=== PATIENT | male | born 1950 | race Caucasian/White ===

== ENCOUNTER 2018-08-04 15:43 | Inpatient (IN) | payer MEDICARE, BC ==
[2018-08-04] MEDS ORDERED: SODIUM CHLORIDE 0.9% 500 ML 500 ML IV ONE (15:58)
--- NOTE | 2018-08-04 16:02 | ED ---
General Adult HPI - General Chief complaint: Fall Stated complaint: Fall off ladder Time Seen by Provider: 08/04/18 15:54 Source: patient, RN notes reviewed, old records reviewed Mode of arrival: wheelchair Limitations: no limitations - History of Present Illness Initial comments: 67-year-old male presents status post fall with head injury. Patient states he was on a ladder approximate 6 feet in the air, patient states does not remember tripping or losing his balance, does not remember passing out prior to falling. He does not remember tripping. He has no chronic medical history. Not on blood thinners. He is complaining of occipital headache and right shoulder pain as well as right posterior chest wall pain. His tetanus is up-to-date, received tetanus vaccination approximate 3 years ago. He does have laceration with minimal hemorrhage on the back of his head. Patient denies any preceding chest pain or palpitations. Denies any nausea or vomiting. He states he did have one shot of alcohol at lunch. - Related Data Home Medications Medication Instructions Recorded Confirmed Magnesium Oxide [Mag-Ox] 500 mg PO DAILY 08/04/18 08/04/18 Allergies Allergy/AdvReac Type Severity Reaction Status Date / Time Penicillins Allergy Rash/Hives Verified 08/04/18 16:23 vancomycin Allergy Rash/Hives Verified 08/04/18 16:23 Review of Systems ROS Statement: Those systems with pertinent positive or pertinent negative responses have been documented in the HPI. ROS Other: All systems not noted in ROS Statement are negative. Past Medical History Past Medical History: No Reported History History of Any Multi-Drug Resistant Organisms: None Reported Past Surgical History: Joint Replacement Past Psychological History: No Psychological Hx Reported Smoking Status: Never smoker Past Alcohol Use History: Occasional Past Drug Use History: None Reported General Exam Limitations: no limitations General appearance: alert, in no apparent distress Head exam: Present: normocephalic, other (Occipital laceration, no active bleeding) Eye exam: Present: normal appearance, PERRL, EOMI ENT exam: Present: normal exam Neck exam: Present: normal inspection, full ROM. Absent: tenderness, meningismus Respiratory exam: Present: normal lung sounds bilaterally, chest wall tenderness (Posterior chest wall pain right side.). Absent: respiratory distress Cardiovascular Exam: Present: regular rate, normal rhythm GI/Abdominal exam: Present: soft. Absent: distended, tenderness Extremities exam: Present: normal capillary refill, other (Range of motion limited at the shoulder, 2+ radial pulse on the right, there is deformity of right shoulder consistent with fracture or dislocation) Course Vital Signs 08/04/18 08/04/18 15:46 18:27 Temperature 98 F Pulse Rate 63 81 Respiratory 18 18 Rate Blood Pressure 180/98 154/88 O2 Sat by Pulse 100 97 Oximetry EKG Findings - EKG Comments: EKG Findings:: EKG: Normal sinus rhythm, rate of 62, TX interval 144, QRS duration 94, QTC 43, no ST segment changes Procedures - Laceration Laceration #1 Consent Obtained: verbal consent Time Out Performed: Yes Indication: laceration Site: scalp Description: linear Depth: simple, single layer Pre-repair: wound explored, irrigated extensively, deep structures intact Size of Sutures: other ([place]) Number of Sutures: 6 Technique: simple, interrupted Patient Tolerated Procedure: well Medical Decision Making - Medical Decision Making 67 male presents status post fall from ladder. Patient's history is concerning for syncopal episode prior to the fall. Trauma workup in the emergency department reveals a scalp laceration on the occipital scalp, and deformity of the left shoulder with x-ray evidence of scapular fracture. Additional trauma workup is negative, CT head is negative for intracranial hemorrhage, CT cervical spine negative for fracture or subluxation. Chest x-ray negative for pneumothorax, no rib fractures. X-ray of the pelvis is negative for acute bony abnormality. CT of the chest and pelvis is significant only for, and a right scapular fracture. Patient's occipital scalp laceration is cleansed and repaired with 6 swapna. Case is discussed with orthopedics regarding the scapular fracture, patient will be placed in a sling with orthopedics on consult. Case is also discussed with trauma surgery given the fall, given that this was related to syncope, patient will be admitted to internal medicine with both orthopedics and trauma surgery on consult. Patient will be kept on telemetry, echo will be obtained, serial cardiac enzymes will be obtained. Case discussed with Dr. Mix will accept admission for syncopal evaluation. Echo will be obtained, patient will be kept on telemetry, serial cardiac enzymes obtained. - Lab Data Result diagrams: 08/04/18 16:14 08/04/18 16:14 Lab Results 10/22/18 10/22/18 10/22/18 Range/Units 16:14 16:14 16:14 WBC 9.7 (3.8-10.6) k/uL RBC 4.93 (4.30-5.90) m/uL Hgb 15.3 (13.0-17.5) gm/dL Hct 46.8 (39.0-53.0) % MCV 95.0 (80.0-100.0) fL MCH 31.0 (25.0-35.0) pg MCHC 32.6 (31.0-37.0) g/dL RDW 12.8 (11.5-15.5) % Plt Count 260 (150-450) k/uL Neutrophils % 76 % Lymphocytes % 15 % Monocytes % 4 % Eosinophils % 3 % Basophils % 0 % Neutrophils # 7.4 (1.3-7.7) k/uL Lymphocytes # 1.5 (1.0-4.8) k/uL Monocytes # 0.4 (0-1.0) k/uL Eosinophils # 0.3 (0-0.7) k/uL Basophils # 0.0 (0-0.2) k/uL PT (9.0-12.0) sec INR (<1.2) APTT (22.0-30.0) sec Sodium 137 (137-145) mmol/L Potassium 4.3 (3.5-5.1) mmol/L Chloride 104 (98-107) mmol/L Carbon Dioxide 28 (22-30) mmol/L Anion Gap 5 mmol/L BUN 14 (9-20) mg/dL Creatinine 0.79 (0.66-1.25) mg/dL Est GFR (CKD-EPI)AfAm >90 (>60 ml/min/1.73 sqM) Est GFR (CKD-EPI)NonAf >90 (>60 ml/min/1.73 sqM) Glucose 167 H (74-99) mg/dL Calcium 9.0 (8.4-10.2) mg/dL Magnesium 2.1 (1.6-2.3) mg/dL Total Bilirubin 0.7 (0.2-1.3) mg/dL AST 45 (17-59) U/L ALT 41 (21-72) U/L Alkaline Phosphatase 63 (38-126) U/L Total Creatine Kinase 387 H (55-170) U/L CK-MB (CK-2) 7.1 H (0.0-2.4) ng/mL CK-MB (CK-2) Rel Index 1.8 Troponin I <0.012 (0.000-0.034) ng/mL Total Protein 6.9 (6.3-8.2) g/dL Albumin 4.0 (3.5-5.0) g/dL Serum Alcohol <10 mg/dL 08/04/18 Range/Units 16:14 WBC (3.8-10.6) k/uL RBC (4.30-5.90) m/uL Hgb (13.0-17.5) gm/dL Hct (39.0-53.0) % MCV (80.0-100.0) fL MCH (25.0-35.0) pg MCHC (31.0-37.0) g/dL RDW (11.5-15.5) % Plt Count (150-450) k/uL Neutrophils % % Lymphocytes % % Monocytes % % Eosinophils % % Basophils % % Neutrophils # (1.3-7.7) k/uL Lymphocytes # (1.0-4.8) k/uL Monocytes # (0-1.0) k/uL Eosinophils # (0-0.7) k/uL Basophils # (0-0.2) k/uL PT 10.4 (9.0-12.0) sec INR 1.1 (<1.2) APTT 21.3 L (22.0-30.0) sec Sodium (137-145) mmol/L Potassium (3.5-5.1) mmol/L Chloride (98-107) mmol/L Carbon Dioxide (22-30) mmol/L Anion Gap mmol/L BUN (9-20) mg/dL Creatinine (0.66-1.25) mg/dL Est GFR (CKD-EPI)AfAm (>60 ml/min/1.73 sqM) Est GFR (CKD-EPI)NonAf (>60 ml/min/1.73 sqM) Glucose (74-99) mg/dL Calcium (8.4-10.2) mg/dL Magnesium (1.6-2.3) mg/dL Total Bilirubin (0.2-1.3) mg/dL AST (17-59) U/L ALT (21-72) U/L Alkaline Phosphatase (38-126) U/L Total Creatine Kinase (55-170) U/L CK-MB (CK-2) (0.0-2.4) ng/mL CK-MB (CK-2) Rel Index Troponin I (0.000-0.034) ng/mL Total Protein (6.3-8.2) g/dL Albumin (3.5-5.0) g/dL Serum Alcohol mg/dL Disposition Clinical Impression: Fall, Syncope, Right scapula fracture, Scalp laceration Disposition: ADMITTED IP TO THIS [facility] Referrals: Nonstaff,Physician [Primary Care Provider] - 1-2 days Decision to Admit Reason: Admit from EC Decision Date: 08/04/18 Decision Time: 19:48
[2018-08-04 16:34] LABS: Basophils % (A) 0 %; Eosinophils # (A) 0.3 k/uL (0-0.7); Eosinophils % (A) 3 %; HCT 46.8 % (39.0-53.0); HGB 15.3 gm/dL (13.0-17.5); Lymphocytes # (A) 1.5 k/uL (1.0-4.8); Lymphocytes % (A) 15 %; MCHC 32.6 g/dL (31.0-37.0); Mean Platelet Volume 6.7; Monocytes # (A) 0.4 k/uL (0-1.0); Monocytes % (A) 4 %; Neutrophils # (A) 7.4 k/uL (1.3-7.7); Neutrophils % (A) 76 %; Platelet Count 260 k/uL (150-450); RBC 4.93 m/uL (4.30-5.90); RDW 12.8 % (11.5-15.5); WBC 9.7 k/uL (3.8-10.6)
[2018-08-04 16:42] LABS: ALT 41 U/L (21-72); AST 45 U/L (17-59); Alcohol <10 mg/dL; Alkaline Phosphatase 63 U/L (38-126); Anion Gap 5 mmol/L; Blood Urea Nitrogen 14 mg/dL (9-20); Carbon Dioxide 28 mmol/L (22-30); Chloride 104 mmol/L (98-107); Glucose 167 mg/dL (74-99); Magnesium 2.1 mg/dL (1.6-2.3); Potassium 4.3 mmol/L (3.5-5.1); Sodium 137 mmol/L (137-145); Total Bilirubin 0.7 mg/dL (0.2-1.3); Total Protein 6.9 g/dL (6.3-8.2)
--- NOTE | 2018-08-04 16:48 | CT ---
EXAMINATION TYPE: CT brain ben portillo DATE OF EXAM: 08/04/2018 COMPARISON: None HISTORY: Fall off ladder. Syncope. Posterior head injury. CT DLP: 2008.2 mGycm Automated exposure control for dose reduction was used. TECHNIQUE: CT scan of the head and cervical spine are performed without contrast. FINDINGS: There is mild cerebral cortical atrophy. There is no mass effect nor midline shift. There is no sign of intracranial hemorrhage. The calvarium is intact. There is some mucosal thickening in the ethmoid air cells. Cervical vertebra have normal alignment. There are large hypertrophic anterior bridging osteophytes t hroughout the cervical spine. There is narrowing of C5-6 C6-7 disc spaces. Facet joints are intact. T he skull base is intact. There is no evidence of cervical spine fracture. IMPRESSION: Mild atrophy. No acute intracranial abnormality. Extensive hypertrophic spurring. No fracture seen in the cervical spine.
[2018-08-04 16:53] LABS: Creatine Kinase 387 U/L (55-170)
[2018-08-04 16:57] LABS: INR 1.1 (<1.2); Partial Thromboplastin Time 21.3 sec (22.0-30.0); Prothrombin Time 10.4 sec (9.0-12.0)
[2018-08-04 17:06] LABS: Creatine Kinase MB 7.1 ng/mL (0.0-2.4); Troponin I <0.012 ng/mL (0.000-0.034)
[2018-08-04] MEDS ORDERED: KETOROLAC 30 MG/ML 1 ML VIAL IVP STA (17:12)
--- NOTE | 2018-08-04 17:25 | XR ---
EXAMINATION TYPE: XR shoulder complete RT DATE OF EXAM: 08/04/2018 COMPARISON: NONE HISTORY: Shoulder pain TECHNIQUE: 3 views FINDINGS: There is moderate spurring at the glenohumeral joint. There is fracture through the body of the scapula. This is inferior to the glenoid. There is spurring at the AC joint. IMPRESSION: Nondisplaced scapular fracture. Osteoarthritis. No dislocation.
--- NOTE | 2018-08-04 17:26 | XR ---
EXAMINATION TYPE: XR chest 2V DATE OF EXAM: 08/04/2018 COMPARISON: NONE HISTORY: Pain after a fall TECHNIQUE: Frontal and lateral views of the chest are obtained. FINDINGS: Heart and mediastinum are normal. Lungs are clear. Diaphragm is normal. Bony thorax appear s normal. IMPRESSION: Normal chest
--- NOTE | 2018-08-04 17:26 | XR ---
EXAMINATION TYPE: XR pelvis AP view DATE OF EXAM: 08/04/2018 COMPARISON: NONE HISTORY: Pain TECHNIQUE: Single view FINDINGS: Pelvic ring is intact. The left hip joint space is narrowed with spur formation. There is r ight hip prosthesis. Sacroiliac joints are intact. IMPRESSION: No fracture. Osteoarthritis.
--- NOTE | 2018-08-04 18:53 | CT ---
EXAMINATION TYPE: CT ChestAbdPelvis w con DATE OF EXAM: 08/04/2018 COMPARISON: None HISTORY: Syncope and fall from ladder today. Right rib pain. CT DLP: 1312.5 mGycm Automated exposure control for dose reduction was used. CONTRAST: CT scan of the chest, abdomen and pelvis is performed without Oral Contrast and with IV Contrast, pat ient injected with 100 mL of Isovue 300. FINDINGS: The lungs are clear of infiltrate. There is no pleural effusion or pneumothorax. Heart size is normal . There is no pericardial effusion. There is normal contrast opacification of the thoracic aorta. The re is no evidence of aneurysm or dissection. Liver spleen pancreas gallbladder appear normal. Bile ducts are not dilated. Stomach appears normal. There is no adrenal mass. Kidneys show satisfactory contrast opacification. There is no hydronephrosi s. Appendix appears normal. I see no intestinal wall thickening. There are no dilated loops. There is no free fluid in the pelvis. Bladder distends smoothly. There is no inguinal hernia. There is right hip prosthesis. There is spurring at the left hip joint. Thoracic and lumbar vertebra show no evidenc e of fracture. There is spurring of the endplates. Sternum appears intact. The bony pelvis appears in tact. There is moderate hypertrophic osteoarthritis in the left hip joint. There is no evidence of fr ee air. The ribs appear intact. There is comminuted fracture of the right scapula. Left scapula appears intac t. There is no dislocation of the shoulder joints. Left and right clavicles appear intact. IMPRESSION: Comminuted right scapular fracture. No rib fracture seen. No evidence of traumatic injury within the chest abdomen pelvis. Moderate osteoarthritis in the left hip joint.
[2018-08-04] MEDS ORDERED: ACETAMINOPHEN TAB 325 MG TAB PO PRN (19:49)
[2018-08-04] MEDS ORDERED: NALOXONE 0.4 MG/ML 1 ML VIAL IV PRN (19:49)
[2018-08-04] MEDS ORDERED: SODIUM CHLORIDE 0.9% 1,000 ML IV SCH (20:00)
--- NOTE | 2018-08-04 22:41 | P.HPIM ---
History of Present Illness H&P Date: 08/04/18 Chief Complaint: Syncope 67-year-old male with no significant past medical history. Patient was doing regular maintenance on his boat climbing a ladder when he suddenly fell down. Patient doesn't recall the fall details and he is not sure what happened, he starts remembering when he woke up and was trying to sit on a chair. Apparently he fell off the ladder while stepping down and hit his head, patient then was told that people around the boat attended to a loud thud and helped him up to sit on a chair and that's when his memory starts. Bystander denied any seizure-like activities and reports that the patient was awake by the time they got to him is no report of loss of consciousness he was bleeding from the back of his head and he was complaining of pain in his right shoulder, patient denies any associated or proceeding palpitations lightheadedness or dizziness or any chest pain or trouble breathing. Patient denies any history of syncope in the past. He reports that he had a normal day today where he had a big meal with a small shot of whiskey which he normally does. And he was feeling at his baseline status of health. Patient otherwise denies any medical problems from before he denies any GI bleeding or any focal neurologic deficits. Patient denies any abdominal pain nausea or vomiting. Patient denies any chest pain or trouble breathing fevers or chills. Currently he is reporting some right shoulder pain and stiffness in his neck. Otherwise she is feeling fine Extensive trauma workup was done in the ED only showed fracture of the right scapula and superficial laceration of the occipital region of his comp that was sutured in the ED. Patient was up-to-date on his tetanus vaccine and did not require one this time. Review of Systems Pertinent positives as noted in HPI. All other systems were reviewed and are negative Past Medical History Past Medical History: No Reported History History of Any Multi-Drug Resistant Organisms: None Reported Past Surgical History: Joint Replacement Past Psychological History: No Psychological Hx Reported Smoking Status: Never smoker Past Alcohol Use History: Occasional Past Drug Use History: None Reported Medications and Allergies Home Medications Medication Instructions Recorded Confirmed Type Magnesium Oxide [Mag-Ox] 500 mg PO DAILY 08/04/18 08/04/18 History Allergies Allergy/AdvReac Type Severity Reaction Status Date / Time Penicillins Allergy Rash/Hives Verified 08/04/18 16:23 vancomycin Allergy Rash/Hives Verified 08/04/18 16:23 Physical Exam Vitals: Vital Signs Temp Pulse Resp BP Pulse Ox 08/04/18 19:48 80 16 148/76 98 08/04/18 18:27 81 18 154/88 97 08/04/18 15:46 98 F 63 18 180/98 100 Intake and Output 08/04/18 08/04/18 08/04/18 06:59 14:59 22:59 Other: Weight 97.522 kg Constitutional: No acute distress, conversant, pleasant, well developed Eyes: Anicteric sclerae, moist conjunctiva, no lid-lag Pupils equal round reactive to light ENMT: NC/ 5 cm laceration on the occipital region of his comp status post stapling no active bleeding at this time Oropharynx clear, no erythema, or exudates Neck: Supple, intact ROM otherwise slightly limited by pain in his right shoulder, no masses, or JVD No carotid bruits No thyromegaly Lungs: Clear to auscultation Clear to percussion Normal respiratory effort, no accessory muscle use Cardiovascular: Heart regular in rate and rhythm, No murmurs, gallops, or rubs No peripheral edema Abdominal: Soft Nontender, no guarding, rebound or rigidity Abdomen moving with respiration Normoactive bowel sounds No hepatomegaly, No splenomegaly No palpable mass No abdominal wall hernia noted Skin: Normal temperature, tone, texture, turgor No induration No subcutaneous nodules No rash, lesions No ulcers Extremities: No digital cyanosis No clubbing Pedal pulses intact and symmetrical Radial pulses intact and symmetrical No calf tenderness Psychiatric: Alert and oriented to person, place and time Appropriate affect fair judgment Neuro Muscles Strength 5/5 in all 4 extremities (except for limited exam over the right upper extremity due to arm sling and pain in the right shoulder) Sensation to light touch grossly present throughout Cranial nerves II-XII grossly intact No focal sensory deficits Lymphatics: no palpable cervical or supraclavicular , or inguinal lymph nodes Results CBC & Chem 7: 08/04/18 16:14 08/04/18 16:14 Labs: Abnormal Lab Results - Last 24 Hours (Table) 08/04/18 08/04/18 08/04/18 Range/Units 16:14 16:14 16:14 APTT 21.3 L (22.0-30.0) sec Glucose 167 H (74-99) mg/dL Total Creatine Kinase 387 H (55-170) U/L CK-MB (CK-2) 7.1 H (0.0-2.4) ng/mL Assessment and Plan Assessment: 67-year-old male with no significant past medical history admitted under observation with anticipated length of stay less than 48 hours due to falling off the ladder and hitting his head with suspected possible syncope to be ruled out. Patient will be kept on telemetry, 2-D echocardiogram of the heart was ordered, cardiac enzymes will be monitored. Trauma and orthopedic surgery are on consult. Patient doesn't recall falling off a ladder or the events surrounding immediately after the fall, this could be due to posttraumatic amnesia versus brief syncope Plan: accidental fall, rule out syncope cardiac workup tele 2 D echocardiogram EKG unremarkable neuro checks CT head neg Head laceration 2/2 trauma (fall) s/p suturing follow up OP for staple removal traumatic closed, right scapular fracture Ortho and trauma surgery on consult for further input right arm sling pain control Elevated blood pressure without diagnosis of HTN, asymptomatic possibly 2/2 to pain monitor for now DVT PPx mechanical PT/OT Surrogate decision-maker: Dorina patient CODE STATUS: Full code Anticipated discharge: <[address]: Home A total of 50 minutes was spent on the care of this complex patient more than 50% of the time was spent in counseling and care coordination.
[2018-08-04] MEDS ORDERED: KETOROLAC 30 MG/ML 1 ML VIAL IVP PRN (22:43)
[2018-08-05 00:19] LABS: Creatine Kinase 670 U/L (55-170)
[2018-08-05 00:27] VITALS: RESP 15
[2018-08-05 00:35] LABS: Creatine Kinase MB 5.2 ng/mL (0.0-2.4); Troponin I <0.012 ng/mL (0.000-0.034)
[2018-08-05 06:27] LABS: Basophils % (A) 0 %; Eosinophils # (A) 0.2 k/uL (0-0.7); Eosinophils % (A) 2 %; HCT 40.6 % (39.0-53.0); HGB 13.7 gm/dL (13.0-17.5); Lymphocytes # (A) 1.1 k/uL (1.0-4.8); Lymphocytes % (A) 11 %; MCH 31.7 pg (25.0-35.0); MCHC 33.7 g/dL (31.0-37.0); MCV 94.1 fL (80.0-100.0); Mean Platelet Volume 7.1; Monocytes # (A) 0.7 k/uL (0-1.0); Monocytes % (A) 7 %; Neutrophils # (A) 7.2 k/uL (1.3-7.7); Neutrophils % (A) 78 %; Platelet Count 205 k/uL (150-450); RBC 4.32 m/uL (4.30-5.90); RDW 12.9 % (11.5-15.5); WBC 9.3 k/uL (3.8-10.6)
[2018-08-05 06:47] LABS: Anion Gap 5 mmol/L; Blood Urea Nitrogen 13 mg/dL (9-20); Calcium 8.6 mg/dL (8.4-10.2); Carbon Dioxide 22 mmol/L (22-30); Chloride 110 mmol/L (98-107); Glucose 103 mg/dL (74-99); Sodium 137 mmol/L (137-145)
[2018-08-05 06:49] LABS: Potassium 4.3 mmol/L (3.5-5.1)
[2018-08-05 06:56] LABS: Creatine Kinase 555 U/L (55-170)
[2018-08-05 07:10] LABS: Creatine Kinase MB 3.7 ng/mL (0.0-2.4); Troponin I <0.012 ng/mL (0.000-0.034)
--- NOTE | 2018-08-05 09:27 | P.CNOR ---
History of Present Illness - [facility] Consult date: 08/05/18 Requesting physician: Adrian Gordon Consult reason: fracture History of present illness: Patient is a 67 year old male seen at bedside this morning in consult for scapula fracture. He was admitted through the ED last evening after suffering a fall. He states that he was doing regular maintenance on his boat climbing a ladder when he suddenly fell down. Extensive trauma workup was done in the ED and showed fracture of the right scapula and superficial laceration of the occipital region of his scalp that was sutured in the ED. He continues to have right shoulder pain. He denies radicular symptoms including numbness or tingling. He has no other complaints currently. Review of Systems All systems: negative Constitutional: Denies chills, Denies fever Eyes: denies blurred vision, denies pain Ears, nose, mouth and throat: Denies headache, Denies sore throat Cardiovascular: Denies chest pain, Denies shortness of breath Respiratory: Denies cough Gastrointestinal: Denies abdominal pain, Denies diarrhea, Denies nausea, Denies vomiting Musculoskeletal: Denies myalgias Integumentary: Denies pruritus, Denies rash Neurological: Denies numbness, Denies weakness Psychiatric: Denies anxiety, Denies depression Endocrine: Denies fatigue, Denies weight change Past Medical History Past Medical History: No Reported History History of Any Multi-Drug Resistant Organisms: None Reported Past Surgical History: Joint Replacement Past Anesthesia/Blood Transfusion Reactions: No Reported Reaction Past Psychological History: No Psychological Hx Reported Smoking Status: Never smoker Past Alcohol Use History: Occasional Past Drug Use History: None Reported - Past Family History Mother Family Medical History: Diabetes Mellitus Medications and Allergies Home Medications Medication Instructions Recorded Confirmed Type Magnesium Oxide [Mag-Ox] 500 mg PO DAILY 08/04/18 08/04/18 History Allergies Allergy/AdvReac Type Severity Reaction Status Date / Time Penicillins Allergy Rash/Hives Verified 08/04/18 16:23 vancomycin Allergy Rash/Hives Verified 08/04/18 16:23 Physical Examination Inspection of the right upper extremity and shoulder shows no deformity. There is no erythema or wounds. There is mild involving ecchymoses. Arm is in a sling. Range of motion of the shoulder is not tested due to the fracture at the scapula. Elbow has full flexion-extension along with the wrist, hand and fingers. There is no neurological deficit. Sensations intact throughout the right upper extremity. Is 2+ radial pulse. There is less than 2 second capillary refill distally. Results X-ray of the right shoulder shows a minimally to nondisplaced right scapular fracture. - Labs Labs: Abnormal Lab Results - Last 24 Hours (Table) 08/04/18 08/04/18 08/04/18 Range/Units 16:14 16:14 16:14 APTT 21.3 L (22.0-30.0) sec Chloride (98-107) mmol/L Glucose 167 H (74-99) mg/dL Total Creatine Kinase 387 H (55-170) U/L CK-MB (CK-2) 7.1 H (0.0-2.4) ng/mL 08/04/18 08/05/18 08/05/18 Range/Units 23:30 05:31 05:31 APTT (22.0-30.0) sec Chloride 110 H (98-107) mmol/L Glucose 103 H (74-99) mg/dL Total Creatine Kinase 670 H 555 H (55-170) U/L CK-MB (CK-2) 5.2 H 3.7 H (0.0-2.4) ng/mL H & H 08/04/18 08/05/18 Range/Units 16:14 05:31 Hgb 15.3 13.7 (13.0-17.5) gm/dL Hct 46.8 40.6 (39.0-53.0) % Coagulation 08/04/18 Range/Units 16:14 INR 1.1 (<1.2) Result Diagrams: 08/05/18 05:31 08/05/18 05:31 Assessment and Plan (1) Right scapula fracture Narrative/Plan: Patient has a scapula fracture that appears stable. He has no radicular symptoms and no neurological deficit. Recommend continued sling and restricted activities with the right upper extremity. He may work with physical therapy as tolerated. He can follow up as an outpatient in 1 week for repeat x-rays and further evaluation and recommendations. Thank you for the consult. Current Visit: Yes Status: Acute Priority: Medium Code(s): S42.101A - FRACTURE OF UNSP PART OF SCAPULA, RIGHT SHOULDER, INIT SNOMED Code(s): 1360709 Time with Patient: Less than 30
[2018-08-05 09:57] VITALS: BP 132/79; PULSE 69; TEMP 98.9
--- NOTE | 2018-08-05 10:08 | ECHOF ---
Referral Reason:Syncope MEASUREMENTS -------- HEIGHT: 182.9 cm WEIGHT: 97.5 kg BP: 155/79 RVIDd: 2.9 cm (< 3.3) IVSd: 1.1 cm (0.6 - 1.1) LVIDd: 4.1 cm (3.9 - 5.3) LVPWd: 1.3 cm (0.6 - 1.1) IVSs: 1.4 cm LVIDs: 2.7 cm LVPWs: 1.4 cm LA Diam: 3.2 cm (2.7 - 3.8) LAESV Index (A-L): 22.41 ml/m Ao Diam: 3.4 cm (2.0 - 3.7) AV Cusp: 2.3 cm (1.5 - 2.6) LA Diam: 3.5 cm (2.7 - 3.8) MV EXCURSION: 18.742 mm (> 18.000) MV EF SLOPE: 85 mm/s (70 - 150) EPSS: 0.3 cm MV E [place]: 0.86 m/s MV DecT: 206 ms MV A [place]: 0.70 m/s MV E/A Ratio: 1.23 RAP: 5.00 mmHg RVSP: 41.26 mmHg FINDINGS -------- Sinus rhythm. This was a technically good study. LV size, wall thickness and systolic function are normal, with an EF greater than 55%. The left eber tricular size is normal. The right ventricle is normal in size. The left atrial size is normal. The right atrial size is normal. The aortic valve is trileaflet, and appears structurally normal. No aortic stenosis or regurgitation. Mild mitral annular calcification present. Mild mitral regurgitation is present. Mild tricuspid regurgitation present. There is mild pulmonary hypertension. The right ventricular systolic pressure, as measured by Doppler, is 41.26mmHg. There is no pulmonic regurgitation present. The aortic root size is normal. There is no pericardial effusion. CONCLUSIONS -------- 1. LV size, wall thickness and systolic function are normal, with an EF greater than 55%. 2. The left ventricular size is normal. 3. The right ventricle is normal in size. 4. The left atrial size is normal. 5. The right atrial size is normal. 6. The aortic valve is trileaflet, and appears structurally normal. No aortic stenosis or regurgitati on. 7. Mild mitral annular calcification present. 8. Mild mitral regurgitation is present. 9. Mild tricuspid regurgitation present. 10. There is mild pulmonary hypertension. 11. The right ventricular systolic pressure, as measured by Doppler, is 41.26mmHg. 12. There is no pulmonic regurgitation present. 13. The aortic root size is normal. 14. There is no pericardial effusion. DRAFTER [employer]OGRAPHICAL: Noemi Geronimo RDCS
--- NOTE | 2018-08-05 12:41 | P.PN ---
Subjective Progress Note Date: 08/05/18 Principal diagnosis: Syncopal episode Patient was seen and examined. No acute events overnight. Patient reports not remembering walling off a ladder, 7-8 feet. He does not remember tripping or losing his balance. Patient does not remember the actual fall in itself. He does deny any bladder or bowel incontinence. He is on sure whether he was shaking or not. He has never had any seizures in the past. No episodes of dizziness. He does not have any past medical history. He does not take any medications. He does drink, about 2 or 3 times a week. He denies any dizziness , nausea, vomiting, fever, cough, chest pain, shortness of breath, palpitations , changes in urination or bowel habits. Objective - Vital Signs Vital signs: Vital Signs Temp 98.9 F 08/05/18 07:40 Pulse 69 08/05/18 07:40 Resp 15 08/05/18 10:15 BP 132/79 08/05/18 07:40 Pulse Ox 97 08/05/18 10:16 Intake & Output 08/04/18 08/05/18 08/05/18 18:59 06:59 18:59 Intake Total 700 Balance 700 Weight 97.522 kg Intake: Intake, IV Titration 400 Amount Sodium Chloride 0.9% 1, 400 000 ml @ 50 mls/hr IV . Q20H [facility] Rx#:[id number] Oral 300 Other: Voiding Method Toilet Urinal # Voids 2 - Exam General: [non toxic], [no distress], [appears at stated age] Derm: [warm], [dry] Head: [atraumatic], [normocephalic], [symmetric] Eyes: [EOMI], [no lid lag], [anicteric sclera] Mouth: [no lip lesion], [mucus membranes moist] Cardiovascular: [S1S2 reg], [+ diastolic murmur], [positive DP pulse bilateral] , [2+ radial pulse in the right upper extremity] Lungs: [CTA bilateral], [no rhonchi, no rales] , [no accessory muscle use] Abdominal: [soft], [ nontender to palpation], [no guarding], [no appreciable organomegaly] Ext: [no gross muscle atrophy], [no edema], [no contractures], [right shoulder restricted range of motion due to pain, and a sling, no gross deformity], [ sensation intact to touch in the right upper extremity] Neuro: [ CN II-XI grossly intact], [no focal neuro deficits] Psych: [Alert], [oriented], [appropriate affect] - Labs CBC & Chem 7: 08/05/18 05:31 08/05/18 05:31 Labs: Abnormal Lab Results - Last 24 Hours (Table) 08/04/18 08/04/18 08/04/18 Range/Units 16:14 16:14 16:14 APTT 21.3 L (22.0-30.0) sec Chloride (98-107) mmol/L Glucose 167 H (74-99) mg/dL Total Creatine Kinase 387 H (55-170) U/L CK-MB (CK-2) 7.1 H (0.0-2.4) ng/mL 08/04/18 08/05/18 08/05/18 Range/Units 23:30 05:31 05:31 APTT (22.0-30.0) sec Chloride 110 H (98-107) mmol/L Glucose 103 H (74-99) mg/dL Total Creatine Kinase 670 H 555 H (55-170) U/L CK-MB (CK-2) 5.2 H 3.7 H (0.0-2.4) ng/mL Assessment and Plan Assessment: Assessment and Plan 1. Syncope: Unclear of true syncope. Orthostats negative. CT brain negative. Echocardiogram shows EF 55% with mild MR and TR. Troponins < 0.012 x 3, EKG is NSR. Electrolytes within normal limits. No concerns for SZ (no history, no bladder or bowel incontinence, no witnessed shaking). Telemetry monitoring. 2. R scapular fracture: Comminuted R scapular fracture seen on panCT. Pain management with Tylenol and Toradol. Orthopedic Sx consulted - no Sx intervention, FU in 1 week. FU PT/OT consult 3. DVT Prophylaxis: Low risk, early mobilization. ACS ruled out. Echo within normal limits (mild regurgitation - not the cause for syncope). Telemetry shows no events. Orthostats negative. No concerns for seizure. Likely vasovagal. Will DC home with a FU with PCP in 1-2 days.
[2018-08-05] MEDS ORDERED: KETOROLAC 30 MG/ML 1 ML VIAL IVP STA (12:44)
[2018-08-05 13:30] LABS: Creatine Kinase 555 U/L (55-170)
[2018-08-05 13:43] LABS: Creatine Kinase MB 3.9 ng/mL (0.0-2.4); Troponin I <0.012 ng/mL (0.000-0.034)
--- NOTE | 2018-08-06 17:34 | P.GSCN ---
History of Present Illness Consult date: 08/05/18 Reason for Consult: Fall from ladder History of present illness: This is a 67-year-old male who had a fall from a ladder while doing some maintenance. Patient appears to have a syncopal episode. He was worked up in the emergency room found have a right scapular fracture and a small occipital laceration. Patient denies any other significant pain. He's been admitted to medicine workup for syncope. Past Medical History Past Medical History: No Reported History History of Any Multi-Drug Resistant Organisms: None Reported Past Surgical History: Joint Replacement Past Anesthesia/Blood Transfusion Reactions: No Reported Reaction Past Psychological History: No Psychological Hx Reported Smoking Status: Never smoker Past Alcohol Use History: Occasional Past Drug Use History: None Reported - Past Family History Mother Family Medical History: Diabetes Mellitus Medications and Allergies Home Medications Medication Instructions Recorded Confirmed Type Magnesium Oxide [Mag-Ox] 500 mg PO DAILY 08/04/18 08/04/18 History Acetaminophen Tab [Tylenol] 650 mg PO Q6HR PRN tab 08/05/18 Rx Ketorolac [Toradol] 10 mg PO Q6HR #14 tab 08/05/18 Rx Allergies Allergy/AdvReac Type Severity Reaction Status Date / Time Penicillins Allergy Rash/Hives Verified 08/04/18 16:23 vancomycin Allergy Rash/Hives Verified 08/04/18 16:23 Surgical - Exam Vital Signs Temp Pulse Resp BP Pulse Ox 98 F 63 18 180/98 100 08/04/18 15:46 08/04/18 15:46 08/04/18 15:46 08/04/18 15:46 08/04/18 15:46 - General well developed, no distress - Eyes PERRL - ENT normal pinna, normal nares, normal mucosa - Neck Small posterior occipital laceration and sutured in the emergency room no masses - Respiratory Right scapular pain normal expansion - Cardiovascular Rhythm: regular - Abdomen Abdomen: soft, non tender Results - Labs 08/05/18 05:31 08/05/18 05:31 - Imaging Chest x-ray: report reviewed (Right scapular fracture) Assessment and Plan Assessment: Status post syncopal episode with fall from ladder. Patient has been evaluated by orthopedics. There is no further treatment required by the trauma service. Patient will follow-up with his PCP.
== END 2018-08-05 15:15 | disposition home or self-care (01) | DRG 566 ==
LOC: EC 15:43 → 4SSUR 19:48
PROVIDERS: ADMIT Internal Medicine; ATTEND Internal Medicine
PROC: 0HQ0XZZ Repair Scalp Skin, External Approach (ICD-10-PCS; principal; 2018-08-04)
DX: S42.111A Displaced fracture of body of scapula, right shoulder, initial encounter for closed fracture (principal); S01.01XA Laceration without foreign body of scalp, initial encounter; W11.XXXA Fall on and from ladder, initial encounter; I34.0 Nonrheumatic mitral (valve) insufficiency; Z83.3 Family history of diabetes mellitus; R03.0 Elevated blood-pressure reading, without diagnosis of hypertension; R55 Syncope and collapse
CPT/HCPCS: 12001; 36415; 70450; 71046; 71260; 72125; 72170; 74177; 80048; 80053; 80320; 82550; 82553; 83735; 84484; 85025; 85610; 85730; 93005; 93306; 94760; 96361; 96374; 99285